=== PATIENT | male | born 1965 | race Caucasian/White ===

== ENCOUNTER 2017-08-01 04:41 | Emergency (ER) | payer OTHER ==
[2017-08-01] MEDS ORDERED: Amoxicillin/Clavulanate K 875-125 MG Tab ONE (05:40)
--- NOTE | 2017-08-01 05:56 | EDM.PDOC ---
ED HPI GENERAL MEDICAL PROBLEM - General Chief Complaint: General Stated Complaint: FACIAL SWELLING Time Seen by Provider: 08/01/17 05:30 Source of Information: Reports: Patient History Limitations: Reports: No Limitations - History of Present Illness INITIAL COMMENTS - FREE TEXT/NARRATIVE: Patient is a 51 year old man who has had a swelling of the left face over the maxillary sinus. He has no pain but has had tooth abscesses in the past. No fever or chills but there is pressure under the left eye. No nasal drainage. Onset: Gradual Onset Date: 07/31/17 Onset Time: 20:00 Duration: Day(s): (1), Getting Worse Location: Reports: Face Quality: Reports: Dull Severity: Mild Improves with: Reports: Heat Therapy Context: Reports: Other (History of this happenning last year at the same time.) Associated Symptoms: Reports: No Other Symptoms Treatments LEAD CASTER: Reports: Other (see below) (Heat pack.) - Related Data Allergies Allergy/AdvReac Type Severity Reaction Status Date / Time No Known Allergies Allergy Verified 08/01/17 05:37 Home Meds: Home Meds NK [No Known Home Meds] 08/01/17 [History] ED ROS GENERAL - Review of Systems Review Of Systems: See Below Constitutional: Reports: No Symptoms HEENT: Reports: Other (Face pain.) Respiratory: Reports: No Symptoms Cardiovascular: Reports: No Symptoms Endocrine: Reports: No Symptoms GI/Abdominal: Reports: No Symptoms : Reports: No Symptoms Musculoskeletal: Reports: No Symptoms Skin: Reports: No Symptoms Neurological: Reports: No Symptoms Psychiatric: Reports: No Symptoms Hematologic/Lymphatic: Reports: No Symptoms Immunologic: Reports: No Symptoms ED EXAM, GENERAL - Physical Exam Exam: See Below Exam Limited By: No Limitations General Appearance: Alert, WD/WN, No Apparent Distress Eye Exam: Bilateral Eye: EOMI, Normal Fundi, Normal Inspection, PERRL Ears: Normal External Exam, Normal Canal, Hearing Grossly Normal, Normal TMs Ear Exam: Bilateral Ear: Auricle Normal, Canal Normal, TM normal Nose: Normal Inspection, Normal Mucosa, No Blood Throat/Mouth: Normal Inspection, Normal Lips, Normal Teeth, Normal Gums, Normal Oropharynx, Normal Voice, No Airway Compromise Head: Facial Swelling (He has mild swelling over the left maxillary sinus area and swelling of the left upper gums in his mouth.) Neck: Normal Inspection, Supple, Non-Tender, Full Range of Motion Respiratory/Chest: No Respiratory Distress, Lungs Clear, Normal Breath Sounds, No Accessory Muscle Use, Chest Non-Tender Cardiovascular: Normal Peripheral Pulses, Regular Rate, Rhythm, No Edema, No Gallop, No JVD, No Murmur, No Rub GI/Abdominal: Normal Bowel Sounds, Soft, Non-Tender, No Organomegaly, No Distention, No Abnormal Bruit, No Mass Extremities: Normal Inspection, Normal Range of Motion, Non-Tender, Normal Capillary Refill, No Pedal Edema Neurological: Alert, Oriented, CN II-XII Intact, Normal Cognition, Normal Gait, Normal Reflexes, No Motor/Sensory Deficits Psychiatric: Normal Affect, Normal Mood Skin Exam: Warm Lymphatic: No Adenopathy Course - Vital Signs Text/Narrative:: Uneventful ED course. This is most likely a dental abscess that may be causing a sinusitis. He will see a dentist JAMES. He will be put on Augmentin 875 mg po bid x 10 days, hot pack the left side of his face and take tylenol 500 mg po q 4 hours or Ibuprofen 800 mg po q 6 hours for pain. Return to ED if worsening. Departure - Departure Time of Disposition: 06:01 Disposition: Home, Self-Care 01 Condition: Good Clinical Impression: Dental abscess, Sinusitis - Discharge Information Forms: ED Department Discharge
== END 2017-08-01 05:45 | disposition home or self-care (01) ==
LOC: LB.ED 04:41
DX: K04.7 Periapical abscess without sinus (principal); J32.9 Chronic sinusitis, unspecified
CPT/HCPCS: 99283; A9270

== ENCOUNTER 2019-04-23 10:31 | Emergency (ER) | payer OTHER ==
[2019-04-23] MEDS ORDERED: Aspirin 81 MG Tab.Chew PO ONE (10:45)
[2019-04-23] MEDS ORDERED: Sodium Chloride 0.9% 10 ML Syringe FLUSH PRN (10:59)
--- NOTE | 2019-04-23 11:06 | EDM.PDOC ---
ED HPI GENERAL MEDICAL PROBLEM - General Chief Complaint: Chest Pain Stated Complaint: CHEST PAIN Time Seen by Provider: 04/23/19 10:55 Source of Information: Reports: Patient, RN History Limitations: Reports: No Limitations - History of Present Illness INITIAL COMMENTS - FREE TEXT/NARRATIVE: 53 yr male presents with chest pain, midsternal. Pain started with using the chain saw today. He does take Atorvastatin X 15 years. Hx of tia. NSR noted per EKG, no ST changes noted. Chest x-ray completed. Labs drawn. Pain with movement of sitting forward for x-ray. No shortness of breath today with this. This pain was noted a couple other times while pulling up the anchor in the boat, but subsided easily. Today the pain didn't go away. Pain was 4-5/10 and now 2/10. He did take Aleve 2 tabs this am. He does have hx of right wrist pain and neck pain and states he took the Aleve for this pain. - Related Data Allergies Allergy/AdvReac Type Severity Reaction Status Date / Time No Known Allergies Allergy Verified 04/23/19 10:51 Home Meds: Home Meds atorvaSTATin [Lipitor] 20 mg PO DAILY 04/23/19 [History] ED ROS GENERAL - Review of Systems Review Of Systems: See Below Constitutional: Denies: Fever, Decreased Appetite HEENT: Denies: Sinus Problem, Throat Pain, Throat Swelling Respiratory: Denies: Shortness of Breath, Wheezing, Cough Cardiovascular: Reports: Chest Pain, Other (Tia in 2000). Denies: Dyspnea on Exertion, Edema, Lightheadedness Endocrine: Reports: No Symptoms GI/Abdominal: Reports: No Symptoms : Reports: No Symptoms Musculoskeletal: Reports: Neck Pain, Other (right thumb pain) Skin: Reports: No Symptoms Neurological: Reports: No Symptoms Psychiatric: Reports: No Symptoms Hematologic/Lymphatic: Reports: No Symptoms Immunologic: Reports: No Symptoms ED EXAM, GENERAL - Physical Exam Exam: See Below Exam Limited By: No Limitations General Appearance: Alert, No Apparent Distress Ears: Hearing Grossly Normal Nose: Normal Inspection, Normal Mucosa Throat/Mouth: Normal Inspection, Normal Voice, No Airway Compromise Head: Atraumatic, Normocephalic Neck: Supple, Non-Tender Respiratory/Chest: No Respiratory Distress, Lungs Clear, Normal Breath Sounds Cardiovascular: Normal Peripheral Pulses, Regular Rate, Rhythm, No Edema Peripheral Pulses: 2+: Radial (L), Radial (R) GI/Abdominal: Normal Bowel Sounds, Soft, Non-Tender Back Exam: Normal Inspection, Full Range of Motion Extremities: Normal Inspection, Normal Range of Motion, Normal Capillary Refill Neurological: Alert, Oriented, Normal Cognition Psychiatric: Normal Affect, Normal Mood Skin Exam: Warm, Dry, Intact, Normal Color Lymphatic: No Adenopathy Course - Orders/Labs/Meds Orders: Active Orders 24 hr Category Date Time Status Cardiac Monitoring [RC] .As Directed Care 04/23/19 10:59 Active EKG Documentation Completion [RC] ASDIRECTED Care 04/23/19 10:52 Active CXR [Chest 1V Frontal] [CR] Stat Exams 04/23/19 10:51 Taken Sodium Chloride 0.9% [Saline Flush] Med 04/23/19 10:59 Active 10 ml FLUSH ASDIRECTED PRN Saline Lock Insert [OM.PC] Routine Oth 04/23/19 10:59 Ordered Medication Orders Sodium Chloride (Saline Flush) 10 ml FLUSH ASDIRECTED PRN PRN Reason: Keep Vein Open Labs: Laboratory Tests 04/23/19 04/23/19 Range/Units 10:59 10:59 WBC 6.8 (4.0-11.0) K/uL RBC 5.09 (4.50-6.50) M/uL Hgb 16.0 (13.0-18.0) g/dL Hct 45.6 (40.0-54.0) % MCV 90 (76-96) fL MCH 31.4 (27.0-32.0) pg MCHC 35.1 H (31.0-35.0) g/dL RDW 12.2 (11.0-16.0) % Plt Count 173 (150-400) K/uL MPV 11.1 H (6.0-10.0) fL Neut % (Auto) 66.6 (45.0-70.0) % Lymph % (Auto) 21.0 (20.0-40.0) % Preston % (Auto) 9.3 (3.0-10.0) % Eos % (Auto) 2.8 (1.0-5.0) % Baso % (Auto) 0.3 (0.0-0.5) % Neut # (Auto) 4.50 (2.00-7.50) K/uL Lymph # (Auto) 1.42 L (1.50-4.00) K/uL Preston # (Auto) 0.63 (0.20-0.80) K/uL Eos # (Auto) 0.19 (0.04-0.40) K/uL Baso # (Auto) 0.02 (0.02-0.10) K/uL Sodium 138 (136-145) mmol/L Potassium 3.9 (3.5-5.1) mmol/L Chloride 102 (98-107) mmol/L Carbon Dioxide 24.5 (21.0-32.0) mmol/L Anion Gap 15.4 H (5.0-15.0) mmol/L BUN 22 (8-26) mg/dL Creatinine 0.97 (0.70-1.30) mg/dL Est Cr Clr Drug Dosing TNP Estimated GFR (MDRD) > 60 (>60) MLS/MIN BUN/Creatinine Ratio 22.7 (6-25) Glucose 108 H (74-100) mg/dL Calcium 9.4 (8.5-10.1) mg/dL Total Bilirubin 0.6 (0.0-1.0) mg/dL AST 28 (15-37) U/L ALT 30 (12-78) U/L Alkaline Phosphatase 95 (46-116) U/L Troponin I < 0.017 (0.000-0.060) ng/mL Total Protein 7.3 (6.4-8.2) g/dL Albumin 4.1 (3.4-5.0) g/dL Globulin 3.2 (2.2-4.2) g/dL Albumin/Globulin Ratio 1.3 (0.8-2.0) Meds: Medications Generic Name Dose Route Start Last Admin Trade Name Freq PRN Reason Stop Dose Admin Sodium Chloride 10 ml 04/23/19 10:59 Saline Flush FLUSH ASDIRECTED PRN Keep Vein Open - Re-Assessments/Exams Free Text/Narrative Re-Assessment/Exam: 04/23/19 11:30 EKG, chest x-ray and labs reviewed. NSR, no ST changes, no BBB , troponin are negative, no other significant findings. Pt states he can taking Aleve at home for the pain, just wanted to make sure he wasn't having a DE. Reassured pt that labs and EKG are normal today. Recommend F/U with PCP in next 1-2 weeks for follow-up. Costochondritis pain today, recommend Aleve bid or Ibuprofen tid as needed, take with food. May use ice/heat to area as needed. Limit activity that causes the pain. Let area rest and heal. RTC or ER if symptoms worsen with chest pain into arm or up neck or worsening of chest pain. Departure - Departure Time of Disposition: 11:47 Disposition: Home, Self-Care 01 Condition: Good Clinical Impression: Costochondral chest pain Instructions: Costochondritis, [id number], Nonspecific Chest Pain, Easy-to- Read Referrals: PCP,None [Primary Care Provider] - Forms: ED Department Discharge Additional Instructions: May take Aleve or Ibuprofen for pain. Limit the activity until you start to feel better. Seek medical attention if you develop chest pain with shortness of breath, nausea, pain down left arm or neck, or dizziness. Follow up with your primary doctor in the next couple of week. - My Orders Last 24 Hours: My Active Orders 04/23/19 10:51 CXR [Chest 1V Frontal] [CR] Stat 04/23/19 10:52 EKG Documentation Completion [RC] ASDIRECTED 04/23/19 10:59 Cardiac Monitoring [RC] .As Directed Sodium Chloride 0.9% [Saline Flush] 10 ml FLUSH ASDIRECTED PRN Saline Lock Insert [OM.PC] Routine - Assessment/Plan Last 24 Hours: My Active Orders 04/23/19 10:51 CXR [Chest 1V Frontal] [CR] Stat 04/23/19 10:52 EKG Documentation Completion [RC] ASDIRECTED 04/23/19 10:59 Cardiac Monitoring [RC] .As Directed Sodium Chloride 0.9% [Saline Flush] 10 ml FLUSH ASDIRECTED PRN Saline Lock Insert [OM.PC] Routine Plan: Costochondritis: Recommend Ibuprofen or Aleve per label as needed for relief of pain. Ice/heat to area as needed for comfort. RTC if increase in chest pain. Limit movement that causes the pain. PCP referral in next 1-2 weeks for follow-up.
--- NOTE | 2019-04-24 12:44 | CR ---
Date of Service: 04/23/2019 Clinical Data:Chest Pain AP PORTABLE CHEST: The heart size is normal. The lungs are clear. No pneumothorax. No pleural effusions. No evidence of acute intrathoracic disease. [id number] MTDD
== END 2019-04-23 11:50 | disposition home or self-care (01) ==
LOC: LB.ED 10:31
DX: R07.1 Chest pain on breathing (principal); Z79.899 Other long term (current) drug therapy
CPT/HCPCS: 36415; 71045; 80053; 84484; 85025; 93005; 99285; A9270

== ENCOUNTER 2021-10-30 08:33 | Emergency (ER) | payer BC, OTHER | END 2021-10-30 11:10 | disposition home or self-care (01) | LOC: LB.ED 08:33 | DX: S92.421A Displaced fracture of distal phalanx of right great toe, initial encounter for closed fracture (principal); E78.00 Pure hypercholesterolemia, unspecified; Z86.73 Personal history of transient ischemic attack (TIA), and cerebral infarction without residual deficits; W20.8XXA Other cause of strike by thrown, projected or falling object, initial encounter | CPT/HCPCS: 73630-RT; 99283-25 ==